=== PATIENT | female | born 1935 | race Caucasian/White ===

== ENCOUNTER 2016-06-24 20:22 | Inpatient (IN) | payer MEDICARE, OTHER ==
--- NOTE | ~2016-06-24 | DS ---
Discharge Summary [place] [address] [facility] [place]. [address] NAME: SON BOONE : 37 STATUS : DIS IN PAT#: [id number] AGE: 80 ADM/REG DATE : 06/25/16 MR#: [id number] REPORT SERV DATE: 07/01/16 DICTATED BY: ANDRADE JOHNSON DATE: 06/30/16 REPORT STATUS : Draft TRANSCRIBED BY: MODL DATE: 06/30/16 ADMISSION DATE: 06/25/2016 DISCHARGE DATE: 06/30/2016 FINAL DIAGNOSES: 1. Status post sepsis with shock secondary to E. coli. 2. Acute pyelonephritis. 3. Bacteremia. 4. Status post metabolic encephalopathy. 5. Status post acute kidney injury. 6. Sick sinus syndrome. 7. Atrial fibrillation with permanent pacemaker, status post rapid. 8. History of diastolic congestive heart failure. 9. Chronic back pain. DIAGNOSTIC EXAMS: Chest x-ray, clear lungs. CAT scan of the abdomen and pelvis showing pacemaker, cardiomegaly, small pleural effusions, prior cholecystectomy, fairly marked left renal atrophy, subtle edematous appearance to the kidney on the right side, question UTI. No mechanical obstruction, prior hysterectomy, mild diverticulosis, multilevel prior low back surgeries. HOSPITAL COURSE: Please refer to the H and P done by Dr. Weber, dated on 06/24/2016. Briefly, this is a 80-year-old female who comes in for confusion. The patient has a history of atrial fibrillation, sick sinus syndrome with permanent pacemaker, diastolic congestive heart failure, on diuretics, woke up on the day of admission feeling very weak, could not get out of the bed, found to have fever and chills, and family noted a confusion. The patient was brought to the emergency room, and the patient was found to have rapid atrial fibrillation, altered mental status, and the patient was admitted by Dr. Weber. The patient was found to be septic. Cultures turned out to be E. coli, found both in the blood and in the urine. The patient was treated with Cardizem drip, antibiotics, and the patient was given fluids and her acute kidney injury resolved. Her rapid atrial fibrillation improved with controlled ventricular response. The patient was initially started on broad-spectrum antibiotics, but when they found that it is sensitive to first generation cephalosporin, she was switched to Ancef, and she continued to do well. The patient was transferred out of the floor, and we got PT involved and they recommended rehab. The patient is doing much better now. She prefers to go to [facility] as she had previous positive experience in that facility, and we got [facility] involved and they are willing to accept the patient today. So, the patient will be transferred there with the above diagnosis. DISCHARGE MEDICATIONS: She will be on the following medications: Aspirin 81 mg a day, amiodarone 200 mg a day, Coreg 12.5 mg twice a day, Colace 100 mg a day, Pepcid 20 mg at bedtime, iron 325 mg 3 times a day, Neurontin 100 mg 3 times a day, Carafate 1 g before meals, Tylenol p.r.n., [place] 7.5/325 every six hours p.r.n. She will be taking Keflex 500 mg p.o. 4 times a day for 9 more days. This has been explained to the patient and she agreed and is happy with the plan. Discharge Summary [address] [address] NAME: SON BOONE : 37 STATUS : DIS IN PAT#: [id number] AGE: 80 ADM/REG DATE : 06/25/16 MR#: [id number] REPORT SERV DATE: 07/01/16 DICTATED BY: ANDRADE JOHNSON DATE: 06/30/16 REPORT STATUS : Draft TRANSCRIBED BY: DAMIAN DATE: 06/30/16 FRANCISCO/DAMIAN Andrade Johnson M.D. / [id number]
--- NOTE | ~2016-06-24 | HP ---
History And Physical [facility] [address] [place]. [address] NAME: SON BOONE : 37 STATUS : ADM Tali PAT#: [id number] AGE: 80 ADM/REG DATE : 06/24/16 MR#: [id number] REPORT SERV DATE: 06/25/16 DICTATED BY: OSWALD RIVERA DATE: 06/25/16 REPORT STATUS : Draft TRANSCRIBED BY: MODL DATE: 06/25/16 DATE OF ADMISSION: 06/24/2016 CHIEF COMPLAINT: Generalized weakness, confusion, and fever. HISTORY OF PRESENT ILLNESS: This is a 80-year-old female, who presents to the emergency room at [facility] with the above-mentioned complaint. History is obtained from the patient, but more so from speaking with the ER physician, and reviewing data available on the SDI system. According to available data, Ms. Boone woke up this morning very weak, unable to get out of bed or even walk. She also had fever and shaking chills, and then became quite confused. The patient was subsequently brought to the emergency room to be evaluated. In the emergency room, she had altered mental status, atrial fibrillation with rapid ventricular response, urinary tract infection with sepsis, and acute kidney injury along with leukocytosis and a slightly elevated troponin level. Hospitalist Service is asked to admit her for further evaluation and treatment. At the time of my evaluation, she was quite confused, unable to follow commands or say where she was or who she was. From available data, there is no mention of her having chest pain or palpitations. She has not had any cough, any falls, or loss of consciousness. No other history of nausea, vomiting, hematemesis, hematochezia, or hematuria. No other history of recent travel or exposures. PAST MEDICAL HISTORY: Significant for history of pulmonary embolism in the past, chronic diastolic congestive heart failure, hypothyroidism, and a pacemaker placement for sick sinus syndrome. She has history of atrial fibrillation, on amiodarone and Coreg. SOCIAL HISTORY: She does not smoke, drink, or use recreational drugs. FAMILY HISTORY: Noncontributory. MEDICATIONS: At home were reviewed by me in the chart today and reordered by me. REVIEW OF SYSTEMS: As in history of present illness. All other systems were reviewed in detail and are quite unremarkable. PHYSICAL EXAMINATION: GENERAL: This is a pleasant 80-year-old, who is confused, unable to say where she is or who she is. She is not alert, awake, oriented to time, place, and person. HEENT: Her pupils are equal, reacting to light and accommodating. External ocular muscles are intact. Membranes are moist and pink. Sclerae are nonicteric. NECK: Supple with no jugular venous distention, lymphadenopathy, or thyromegaly. LUNGS: Auscultation of her lungs revealed fair to moderate air entry bilaterally with no History And Physical [address] [address] NAME: SON BOONE : 37 STATUS : ADM Tali PAT#: [id number] AGE: 80 ADM/REG DATE : 06/24/16 MR#: [id number] REPORT SERV DATE: 06/25/16 DICTATED BY: OSWALD RIVERA DATE: 06/25/16 REPORT STATUS : Draft TRANSCRIBED BY: MODMarilu DATE: 06/25/16 wheezes, rubs, or crackles. HEART: Heart sounds were irregularly irregular. ABDOMEN: Soft, nontender. Bowel sounds are present. EXTREMITIES: Showed no cyanosis, clubbing, or edema. NEURO: She is confused, does not follow commands or answer questions. Other than that, she does not appear to have any neurological deficits. She is able to move all four extremities. VITAL SIGNS: Today showed a temperature of 99.5, pulse was 117, respirations 22 a minute, blood pressure was 131/63. Oxygen saturations were 98%, breathing 2 L of oxygen via nasal cannula. LABORATORY DATA: Reviewed on the SDI system showed a sodium of 136, potassium 4.2, chloride 100, and CO2 of 25. BUN was 47 with a creatinine of 1.82, this has gone up from her baseline of 0.6 to 0.8. Glucose was 137. Her calcium was 7.8, with a magnesium of 2.8. Alkaline phosphatase, ALT, and AST were within normal limits. Troponin was elevated at 0.07. She has chronic elevation of troponin, on 03/26/2016 was 0.06 and 03/27/2016 was 0.05. Her BNP was elevated at 1112.8 today. CBC showed a white blood cell count of 15,800, hemoglobin was 11.3, hematocrit was 34, platelet count was 167,000. Urinalysis showed moderate leukocyte esterase, nitrite was negative. There were 77 wbc's. Films on the chest x-ray were reviewed by me on the PACS today and interpreted by me. Per my interpretation, there is normal bony architecture with cardiomegaly. There is a left-sided pacemaker. There are no lobar consolidations or effusions seen. A 12-lead EKG done in the emergency room was reviewed and interpreted by me. There is atrial fibrillation with rapid ventricular response at a rate of 134. IMPRESSION: 1. Generalized weakness. 2. Altered mental status. 3. Atrial fibrillation with rapid ventricular response. 4. Urinary tract infection and sepsis. 5. Acute kidney injury. 6. Volume overload. 7. Leukocytosis. 8. Elevated troponin. 9. Hypocalcemia. 10.History of pulmonary embolism. 11.Chronic diastolic congestive heart failure. 12.Hypothyroidism. 13.Pacemaker for sick sinus syndrome. PLAN: We will admit Ms. Boone to the Hospitalist Service with cardiac telemetry for a 24 hour observation period. We will start her on Cardizem infusion for rate control and titrate per protocol. She is on amiodarone and beta-blockers at home that we will restart. For her urinary tract infection, we will obtain culture and start her on Rocephin intravenously. We will follow serial troponins to rule out acute coronary syndrome. We will also start her on IV diuretics cautiously, follow serial outputs and daily weights. She will need an echocardiogram in the morning as well. We will go ahead and replace her History And Physical [address] [address] NAME: SON BOONE : 37 STATUS : ADM Tali PAT#: [id number] AGE: 80 ADM/REG DATE : 06/24/16 MR#: [id number] REPORT SERV DATE: 06/25/16 DICTATED BY: OSWALD RIVERA DATE: 06/25/16 REPORT STATUS : Draft TRANSCRIBED BY: DAMIAN DATE: 06/25/16 calcium tonight, check chemistry and electrolytes in the morning and replace as needed. We will also be checking her TSH and meanwhile continue her replacement therapy. We will continue all other home medications and treatments at this time. She will be on unfractionated heparin for DVT prophylaxis while here. There is no next of kin at bedside. The patient is too confused to understand the above plans. We will wait until one of her caregivers arrive. Please see today's orders for details. Hospitalist Service will be following her during her stay. /DAMIAN Oswald Rivera M.D. / [id number] CC: Sidney Landeros Jr, MD
[~2016-06-24 20:22] MED LIST: *UNABLE3; ACET500CAP PO; AMB10 PO; AMB5 PO; AMBIEN 10MG PO; ASAB PO; ATV1 PO; BIDIL20/37 PO; BLUE EMU TOP; BUM1 PO; BUM2 PO; CARDCD180 PO; CEFT2 PO; CELEBREX1 PO; CELEXA20 PO; CELEXA40 MG PO; CORDARONE PO; COREG25 PO; COREG6 PO; DOK250 MG PO; DRAMAMINE25 MG PO; DSS PO; DURA100 TOP; DURA12 TOP; DURA25 TOP; DURA50 TOP; DURAGESIC TD; FENTANYL 25 MCG TD; FERROUS SULF325 M1 PO; FESO4 PO; FLEX PO; FLONASE NAS; FOLIC PO; GLUCCHONDR PO; HALF81 PO; HEMOCYTET PO; HYDROCODONE PO; IRON325 MG PO; K-TABS10 MEQ PO; KADIAN60 MG PO; KADIANSR20 PO; KDUR20 PO; KLOR-CON 1010 MEQ PO; KLOR-CON M2020 MEQ PO; L40 PO; L80 PO; LEVAQUIN750 MG PO; LEVOTHROID125 MCG PO; LEVOTHROID175 MCG PO; LEVOTHROID50 MCG PO; LEVOTHROID75 MCG PO; LEVSINTAB PO; LIDODERM TOP; LOP100 PO; LOP25 PO; LORCET PO; LORTAB10 PO; LOVENOX40 SC; LUNESTA1 MG PO; MACROBID PO; MICRO-K10 MEQ PO; MOMUD PO; MSCONT60 PO; MUCINEX D1 TA1 PO; MUCINEX1200 MG PO; NEUR100 PO; NEUR300 PO; NORCO1 TA1 PO; NORCO1 TA2 PO; NORCO1 TAB PO; NORV10 PO; NORV5 PO; OXYCON10 PO; PACERONE100 MG PO; PACERONE200 MG PO; PRILO PO; PRILOSEC40 MG PO; PROAIR HFA INH; PROVENTSOL INH; SENTAB PO; SEROQUEL1C PO; SPIRO25 PO; STOOL SOFTEN240 MG PO; SUCR PO; SYN.05 PO; SYN075 PO; SYN1 PO; T PO; TUMSROLL PO; VASOTEC10 PO; VITD PO; ZANTAC150 MG PO; ZYDONE1 TA2 PO
[2016-06-24 21:16] LABS: BASOPHILS 0.1 %; BASOPHILS ABSOLUTE 0.02 10/3/uL (0.0-0.16); EOSINOPHILS 0 %; HEMOGLOBIN 11.3 g/dL (12.0-16.0); IMMATURE GRANULOCYTES 0.5 %; IMMATURE GRANULOCYTES ABSOLUTE 0.08 10/3/uL (0.0-0.11); LYMPHOCYTES 3.6 %; LYMPHOCYTES ABSOLUTE 0.56 10/3/uL (0.67-4.30); MEAN CORPUSCULAR HEMOGLOB 31.7 pg (26.0-34.0); MEAN PLATELET VOLUME 11.3 fL (9.2-13.0); MONOCYTES 9.1 %; MONOCYTES ABSOLUTE 1.43 10/3/uL (0.21-1.20); NEUTROPHILS 86.7 %; NEUTROPHILS ABSOLUTE 13.66 10/3/uL (2.02-8.40); RED CELL COUNT 3.56 10/6/uL (4.0-5.6)
[2016-06-24 21:17] LABS: MANUAL DIFF NO %; MEAN CORPUS HGB CONC 33.2 g/dL (32.0-36.0); MEAN CORPUSCULAR VOLUME 95.5 fL (80-100); PLATELET COUNT 167 10/3/uL (150-400); RBC DISTRIBUTION WIDTH 18.7 % (12.0-16.0); WHITE BLOOD CELLS 15.8 10/3/uL (4.5-10.5)
[2016-06-24 21:24] LABS: INTERNATIONAL NORMAL RATI 1.1 UNITS (-); PARTIAL THROMBO TIME 29.4 SEC (22.5-37.2); PROTIME (NOT ORD) 14.3 SEC (12.0-14.5)
[2016-06-24 21:39] LABS: ALBUMIN 2.6 G/DL (3.5-5.0); DIRECT BILIRUBIN 0.2 MG/DL (0.0-0.4); GLUCOSE, SERUM 137 MG/DL (60-99); INDIRECT BILIRUBIN(NOT ORDER) 0.4 MG/DL (0.1-0.9); POTASSIUM, SERUM 4.2 MMOL/L (3.5-5.3); SGPT(ALT) 21 U/L (5-65); SODIUM, SERUM 136 MMOL/L (135-148); TOTAL BILIRUBIN 0.6 MG/DL (0-1.2); TOTAL PROTEIN 6.8 G/DL (6.0-8.5)
[2016-06-24] MEDS ORDERED: L40 PO (21:39)
[2016-06-24 21:42] LABS: BUN (BLOOD UREA NITROGEN) 47 MG/DL (6-23); CHLORIDE, SERUM 100 MMOL/L (96-112); CO2 (CARBON DIOXIDE) 25 MMOL/L (24-34)
[2016-06-24 21:43] LABS: ALKALINE PHOSPHATASE 106 U/L (45-117); CALCIUM, SERUM 7.8 MG/DL (8.5-10.4); CREATININE 1.82 MG/DL (0.55-1.02); GFR AFRICAN AMERICAN 30 ML/MIN (>=60); GFR NON AFRICAN AMERICAN 26 ML/MIN (>=60); SGOT(AST) 40 U/L (5-40)
[2016-06-24] MEDS ORDERED: PEP20 PO (21:44)
[2016-06-24] MEDS ORDERED: COREG6 PO (21:44)
[2016-06-24] MEDS ORDERED: CORDARONE PO (21:45)
[2016-06-24 21:46] LABS: TROPONIN I 0.07 NG/ML (<0.05)
[2016-06-24 21:47] LABS: CHEST PAIN PROFILE TAT 0 Hrs 35 Mins
[2016-06-24] MEDS ORDERED: NORCO1 TA2 PO (21:47)
[2016-06-24] MEDS ORDERED: ASAB PO (21:50)
[2016-06-24 23:26] LABS: ASCORBIC ACID (UR NOT ORDER) NEG (NEG); BILIRUBIN, URINE NEGATIVE (NEG); ER URINALYSIS TAT 0 Hrs 00 Mins; KETONE, URINE NEGATIVE (NEG); LEUKOCYTE ESTERASE(NOT OR MOD (NEG); NITRITE (URINE) NEG (NEG); WBC (NOT ORDERED) (RFLEX) 77 (0-5)
[2016-06-25 04:36] LABS: BASOPHILS 0.1 %; BASOPHILS ABSOLUTE 0.01 10/3/uL (0.0-0.16); EOSINOPHILS 0 %; HEMATOCRIT 31.4 % (36.0-48.0); HEMOGLOBIN 10.5 g/dL (12.0-16.0); IMMATURE GRANULOCYTES 0.2 %; IMMATURE GRANULOCYTES ABSOLUTE 0.03 10/3/uL (0.0-0.11); LYMPHOCYTES 4.1 %; MEAN CORPUS HGB CONC 33.4 g/dL (32.0-36.0); MEAN CORPUSCULAR HEMOGLOB 31.5 pg (26.0-34.0); MEAN CORPUSCULAR VOLUME 94.3 fL (80-100); MEAN PLATELET VOLUME 11.3 fL (9.2-13.0); MONOCYTES 11.6 %; MONOCYTES ABSOLUTE 1.41 10/3/uL (0.21-1.20); PLATELET COUNT 154 10/3/uL (150-400); RBC DISTRIBUTION WIDTH 18.9 % (12.0-16.0); RED CELL COUNT 3.33 10/6/uL (4.0-5.6); WHITE BLOOD CELLS 12.2 10/3/uL (4.5-10.5)
[2016-06-25 04:37] LABS: MANUAL DIFF NO %
[2016-06-25 05:04] LABS: BUN (BLOOD UREA NITROGEN) 49 MG/DL (6-23); CALCIUM, SERUM 7.7 MG/DL (8.5-10.4); CHLORIDE, SERUM 101 MMOL/L (96-112); CO2 (CARBON DIOXIDE) 25 MMOL/L (24-34); CREATININE 1.81 MG/DL (0.55-1.02); GFR AFRICAN AMERICAN 30 ML/MIN (>=60); GFR NON AFRICAN AMERICAN 26 ML/MIN (>=60); GLUCOSE, SERUM 131 MG/DL (60-99); PHOSPHORUS, SERUM 4.3 MG/DL (2.5-4.5); SODIUM, SERUM 137 MMOL/L (135-148); TROPONIN I 0.14 NG/ML (<0.05)
[2016-06-25 08:07] LABS: ALLENS TEST Pos; BE (BASE EXCESS) -1.7 MEQ/L (0 +/- 2.5); CARBOXYHEMOGLOBIN 0.5 % (0-3); DEVICE Nasal Cannula 3l; HCO3 (ACTUAL BICARBONATE) 23.6 MEQ/L (23-27); HEMOBLOGIN CONTENT 11.2 G/DL (12-16); INSTRUMENT SERIAL # 35151; METHEMOGLOBIN 0.4 % (0-3); O2 CONTENT 14.5 VOL% (18-24); OPERATOR ID 14472; PCO2 (CO2 TENSION) 42 MMHG (35-45); PO2 (O2 TENSION) 66 MMHG (79-93); SAMPLE Arterial; pH 7.37 (7.37-7.43)
[2016-06-25 11:17] LABS: PROCALCITONIN 123.23 ng/mL (<0.5)
[2016-06-26 05:05] LABS: BASOPHILS 0.2 %; BASOPHILS ABSOLUTE 0.02 10/3/uL (0.0-0.16); EOSINOPHILS 0 %; HEMATOCRIT 33.5 % (36.0-48.0); IMMATURE GRANULOCYTES 0.3 %; IMMATURE GRANULOCYTES ABSOLUTE 0.03 10/3/uL (0.0-0.11); LYMPHOCYTES 11.1 %; LYMPHOCYTES ABSOLUTE 1.13 10/3/uL (0.67-4.30); MEAN CORPUS HGB CONC 32.8 g/dL (32.0-36.0); MEAN CORPUSCULAR HEMOGLOB 30.9 pg (26.0-34.0); MEAN CORPUSCULAR VOLUME 94.1 fL (80-100); MEAN PLATELET VOLUME 11.4 fL (9.2-13.0); MONOCYTES 17.4 %; MONOCYTES ABSOLUTE 1.77 10/3/uL (0.21-1.20); NEUTROPHILS ABSOLUTE 7.21 10/3/uL (2.02-8.40); PLATELET COUNT 135 10/3/uL (150-400); RBC DISTRIBUTION WIDTH 18.7 % (12.0-16.0); RED CELL COUNT 3.56 10/6/uL (4.0-5.6); WHITE BLOOD CELLS 10.2 10/3/uL (4.5-10.5)
[2016-06-26 05:06] LABS: MANUAL DIFF NO %
[2016-06-26 08:28] LABS: A/G RATIO 0.5 (0.7-1.9); ALBUMIN 2.1 G/DL (3.5-5.0); ALKALINE PHOSPHATASE 99 U/L (45-117); BUN (BLOOD UREA NITROGEN) 44 MG/DL (6-23); CALCIUM, SERUM 8.1 MG/DL (8.5-10.4); CHLORIDE, SERUM 103 MMOL/L (96-112); CO2 (CARBON DIOXIDE) 23 MMOL/L (24-34); CREATININE 1.32 MG/DL (0.55-1.02); GFR AFRICAN AMERICAN 44 ML/MIN (>=60); GFR NON AFRICAN AMERICAN 38 ML/MIN (>=60); GLOBULIN 4.1 G/DL (2.5-4.1); GLUCOSE, SERUM 127 MG/DL (60-99); SGOT(AST) 20 U/L (5-40); SGPT(ALT) 15 U/L (5-65); SODIUM, SERUM 136 MMOL/L (135-148); TOTAL BILIRUBIN 0.5 MG/DL (0-1.2); TOTAL PROTEIN 6.2 G/DL (6.0-8.5)
[2016-06-26 09:18] LABS: PROCALCITONIN 48.68 ng/mL (<0.5)
[2016-06-27 06:05] LABS: BASOPHILS 0.1 %; BASOPHILS ABSOLUTE 0.01 10/3/uL (0.0-0.16); EOSINOPHILS 0 %; HEMOGLOBIN 9.9 g/dL (12.0-16.0); IMMATURE GRANULOCYTES 0.5 %; IMMATURE GRANULOCYTES ABSOLUTE 0.05 10/3/uL (0.0-0.11); LYMPHOCYTES 6.7 %; LYMPHOCYTES ABSOLUTE 0.62 10/3/uL (0.67-4.30); MEAN CORPUS HGB CONC 33.2 g/dL (32.0-36.0); MEAN CORPUSCULAR HEMOGLOB 31.4 pg (26.0-34.0); MEAN CORPUSCULAR VOLUME 94.6 fL (80-100); MEAN PLATELET VOLUME 10.9 fL (9.2-13.0); MONOCYTES 15.1 %; MONOCYTES ABSOLUTE 1.39 10/3/uL (0.21-1.20); NEUTROPHILS 77.6 %; NEUTROPHILS ABSOLUTE 7.15 10/3/uL (2.02-8.40); PLATELET COUNT 152 10/3/uL (150-400); RED CELL COUNT 3.15 10/6/uL (4.0-5.6); WHITE BLOOD CELLS 9.2 10/3/uL (4.5-10.5)
[2016-06-27 06:06] LABS: HEMATOCRIT 29.8 % (36.0-48.0); MANUAL DIFF NO %
[2016-06-27 06:17] LABS: CALCIUM, SERUM 8.6 MG/DL (8.5-10.4); CHLORIDE, SERUM 100 MMOL/L (96-112); CO2 (CARBON DIOXIDE) 26 MMOL/L (24-34); CREATININE 0.95 MG/DL (0.55-1.02); GFR AFRICAN AMERICAN 66 ML/MIN (>=60); GFR NON AFRICAN AMERICAN 57 ML/MIN (>=60); GLUCOSE, SERUM 124 MG/DL (60-99); POTASSIUM, SERUM 4.4 MMOL/L (3.5-5.3); SODIUM, SERUM 134 MMOL/L (135-148)
[2016-06-27 06:19] LABS: BUN (BLOOD UREA NITROGEN) 31 MG/DL (6-23)
[2016-06-27 06:57] LABS: PROCALCITONIN 21.07 ng/mL (<0.5)
[2016-06-28 06:37] LABS: BASOPHILS 0.2 %; BASOPHILS ABSOLUTE 0.02 10/3/uL (0.0-0.16); EOSINOPHILS 0.1 %; EOSINOPHILS ABSOLUTE 0.01 10/3/uL (0.0-0.53); HEMOGLOBIN 11.2 g/dL (12.0-16.0); IMMATURE GRANULOCYTES 0.8 %; IMMATURE GRANULOCYTES ABSOLUTE 0.08 10/3/uL (0.0-0.11); LYMPHOCYTES 6.2 %; LYMPHOCYTES ABSOLUTE 0.65 10/3/uL (0.67-4.30); MEAN CORPUS HGB CONC 32.7 g/dL (32.0-36.0); MEAN CORPUSCULAR HEMOGLOB 31.2 pg (26.0-34.0); MEAN CORPUSCULAR VOLUME 95.5 fL (80-100); MEAN PLATELET VOLUME 10.8 fL (9.2-13.0); MONOCYTES 15.8 %; MONOCYTES ABSOLUTE 1.66 10/3/uL (0.21-1.20); NEUTROPHILS 76.9 %; NEUTROPHILS ABSOLUTE 8.07 10/3/uL (2.02-8.40); PLATELET COUNT 182 10/3/uL (150-400); RBC DISTRIBUTION WIDTH 18.8 % (12.0-16.0); RED CELL COUNT 3.59 10/6/uL (4.0-5.6); WHITE BLOOD CELLS 10.5 10/3/uL (4.5-10.5)
[2016-06-28 06:39] LABS: HEMATOCRIT 34.3 % (36.0-48.0); MANUAL DIFF NO %
[2016-06-28 06:52] LABS: CALCIUM, SERUM 9.1 MG/DL (8.5-10.4); CHLORIDE, SERUM 101 MMOL/L (96-112); CO2 (CARBON DIOXIDE) 27 MMOL/L (24-34); GFR AFRICAN AMERICAN 70 ML/MIN (>=60); GFR NON AFRICAN AMERICAN 61 ML/MIN (>=60); GLUCOSE, SERUM 112 MG/DL (60-99); POTASSIUM, SERUM 4.6 MMOL/L (3.5-5.3); SODIUM, SERUM 135 MMOL/L (135-148)
[2016-06-28 06:54] LABS: BUN (BLOOD UREA NITROGEN) 23 MG/DL (6-23)
== END 2016-06-30 13:47 | DRG 871 ==
LOC: ER 20:22 → CDU1 23:59 → 2SO 06-25 11:48
PROVIDERS: Emergency Medicine; Hospitalist; Internal Medicine
PROC: 02HV33Z Insertion of Infusion Device into Superior Vena Cava, Percutaneous Approach (ICD-10-PCS; principal; 2016-06-25)
DX: A41.51 Sepsis due to Escherichia coli [E. coli] (principal); R65.21 Severe sepsis with septic shock; G93.41 Metabolic encephalopathy; N17.9 Acute kidney failure, unspecified; I50.32 Chronic diastolic (congestive) heart failure; I24.8 Other forms of acute ischemic heart disease; E83.51 Hypocalcemia; N10 Acute pyelonephritis; I49.5 Sick sinus syndrome; E66.9 Obesity, unspecified; I48.2 Chronic atrial fibrillation; E03.9 Hypothyroidism, unspecified; G89.29 Other chronic pain; M54.89 Other dorsalgia; M25.519 Pain in unspecified shoulder; Z95.0 Presence of cardiac pacemaker; Z68.35 Body mass index [BMI] 35.0-35.9, adult; Z86.711 Personal history of pulmonary embolism; E87.70 Fluid overload, unspecified
CPT/HCPCS: 36569; 36600; 71010; 74176; 80048; 80053; 80076; 81001; 82533; 82805; 83605; 83690; 83735; 83880; 84100; 84145; 84443; 84484; 85025; 85610; 85730; 87040; 87077; 87086; 87150; 87186; 87449; 93005; 96365; 96366; 97110-GP; 97116-GP; 97161-GP; 97530-GP; 99285; A9270-GY; C1751; G8978-CK-GP; G8979-CJ-GP; J0610; J0690; J2185